=== PATIENT | female | born 1940 | race Caucasian/White ===

== ENCOUNTER 2024-02-05 13:08 | Emergency (ER) | payer OTHER, MEDICARE ==
[2024-02-05 13:47] VITALS: BP 134/75; PULSE 70; RESP 18; TEMP 97.8; BMI 36.6
[2024-02-05 14:45] LABS: BASO % 0.4 % (0-2.0); EOS % 1.1 % (0-4.5); HEMATOCRIT 39.4 % (32.4-45.2); LYMPH % 12.2 % (8-40); MCH 31.6 pg (25.7-33.7); MCHC 33.1 g/dl (32.0-36.0); MEAN CELL VOLUME 95.4 fl (80-96); MEAN PLT VOLUME 8.3 fl (7.5-11.1); MONO % 11.2 % (3.8-10.2); NEUT % 75.1 % (42.8-82.8); PLATELET COUNT 257 10^3/uL (134-434); RBC 4.13 M/mm3 (3.60-5.2); WHITE BLOOD COUNT 6.6 K/mm3 (4.0-10.0)
[2024-02-05 15:26] LABS: POTASSIUM 3.6 mmol/L (3.5-5.1)
[2024-02-05 15:28] LABS: ALBUMIN 3.9 g/dl (3.4-5.0); CALCIUM 9.1 mg/dL (8.5-10.1)
[2024-02-05 15:29] LABS: BLOOD UREA NITROGEN 22.9 mg/dL (7-18); MAGNESIUM 2.5 mg/dL (1.8-2.4)
[2024-02-05 15:32] LABS: CREATININE 0.7 mg/dL (0.55-1.3)
[2024-02-05 15:33] LABS: BILIRUBIN,TOTAL 0.6 mg/dL (0.2-1); TOT PROT 7.2 g/dl (6.4-8.2)
== END 2024-02-05 19:29 | disposition home or self-care (01) ==
LOC: JER 13:08
DX: M25.551 Pain in right hip (principal); M25.552 Pain in left hip; R07.81 Pleurodynia; W18.39XA Other fall on same level, initial encounter
CPT/HCPCS: 36415; 70450-TC; 71046-TC-FY; 71101-TC-RT-FY; 72125-TC; 72170-TC-FY; 80053; 82550; 82553; 83735; 84484; 85025; 93005; 93010; 99285-25

== ENCOUNTER 2024-11-18 18:21 | Inpatient (IN) | payer OTHER, MEDICARE ==
[2024-11-18] MEDS ORDERED: IBUPROFEN 400 MG TABLET (FP) PO ONE (19:31)
[2024-11-18] MEDS: IBUPROFEN 400 MG TABLET (FP) PO ONE (19:37)
[2024-11-18 21:00] LABS: BASO % 0.4 % (0-2.0); EOS % 0.3 % (0-4.5); HEMATOCRIT 38.6 % (32.4-45.2); HEMOGLOBIN 12.8 GM/dL (10.7-15.3); LYMPH % 13.2 % (8-40); MCH 31.3 pg (25.7-33.7); MCHC 33.3 g/dl (32.0-36.0); MEAN PLT VOLUME 8.5 fl (7.5-11.1); MONO % 12.1 % (3.8-10.2); PLATELET COUNT 237 10^3/uL (134-434); RDW 14.2 % (11.6-15.6); WHITE BLOOD COUNT 7.5 K/mm3 (4.0-10.0)
[2024-11-18 21:05] LABS: INR 1.08 (0.83-1.09); PROTHROMBIN TIME (PATIENT) 12.4 SEC (9.7-13.0)
[2024-11-18] MEDS: PANTOPRAZOLE 40 MG TABLET PO SCH (21:24)
[2024-11-18 21:36] LABS: POTASSIUM 3.9 mmol/L (3.5-5.1)
[2024-11-18 21:39] LABS: BLOOD UREA NITROGEN 21.3 mg/dL (7-18)
[2024-11-18 21:42] LABS: CREATININE 0.7 mg/dL (0.55-1.3)
[2024-11-18 21:44] LABS: BILIRUBIN,TOTAL 0.5 mg/dL (0.2-1); TOT PROT 7.1 g/dl (6.4-8.2)
[2024-11-19 01:11] VITALS: BMI 40.9
[2024-11-19] MEDS: MELATONIN 5 MG TABLETS PO ONE (03:16)
[2024-11-19] MEDS: traMADol HCL 50 MG TABLET PO ONE (06:43)
[2024-11-19] MEDS: traMADol HCL 50 MG TABLET PO PRN (13:12)
[2024-11-19] MEDS: CYANOCOBALAMIN 1,000 MCG TABLET (FP) PO SCH (13:12)
[2024-11-19] MEDS: MELATONIN 5 MG TABLETS PO PRN (21:56)
[2024-11-20] MEDS ORDERED: ceFAZolin SODIUM 1 GM VIAL ONE (07:18)
[2024-11-20] MEDS ORDERED: LIDOCAINE HCL/PF 2% SDV 5ML VIAL ONE (08:38)
[2024-11-20] MEDS ORDERED: PROPOFOL 80 ML ONE (08:39)
[2024-11-20] MEDS ORDERED: SUCCINYLCHOLINE CHLORIDE 200 MG/10 ML SYRINGE ONE (08:39)
[2024-11-20] MEDS ORDERED: PROPOFOL 40 ML ONE (08:41)
[2024-11-20] MEDS: D5-1/2NS+20 MEQ KCL - 20 MEQ/1,000 ML INFUS.BAG IV SCH (10:05)
[2024-11-21] MEDS: HEPARIN NA (PORCINE) 5,000 UNITS/ML 1ML VIAL SQ SCH (14:23)
[2024-11-22 15:00] VITALS: RESP 20
[2024-11-22] MEDS: ACETAMINOPHEN 325 MG TABLET (FP) PO PRN (15:04)
[2024-11-22 19:00] VITALS: BP 143/75; PULSE 103; TEMP 98.1
== END 2024-11-22 20:51 | DRG 552 ==
LOC: JER 18:21 → JERBED 20:43 → J5S 23:42
PROVIDERS: ADMIT Internal Medicine; ATTEND Internal Medicine
DX: M50.00 Cervical disc disorder with myelopathy, unspecified cervical region (principal); S12.200A Unspecified displaced fracture of third cervical vertebra, initial encounter for closed fracture; G95.20 Unspecified cord compression; S02.2XXA Fracture of nasal bones, initial encounter for closed fracture; W19.XXXA Unspecified fall, initial encounter; Y93.9 Activity, unspecified; Y92.89 Other specified places as the place of occurrence of the external cause; Y99.9 Unspecified external cause status
CPT/HCPCS: 36415; 70450-TC; 70486-TC; 71045-TC-FY; 71250-TC; 72125-TC; 72141-TC; 80053; 85025; 85610; 86850; 86900; 86901; 87635; 93005; 93010; 99285-25; J1644